=== PATIENT | female | born 1945 | race Caucasian/White ===

== ENCOUNTER → 2018-08-05 | Outpatient (CLI) | payer MEDICARE ==
--- NOTE | 2018-08-05 17:03 | MR ---
EXAMINATION TYPE: MR lumbar spine wo con DATE OF EXAM: 08/05/2018 COMPARISON: NONE HISTORY: Back pain TECHNIQUE: T1 and T2 axial and sagittal images of the lumbar spine are submitted. FINDINGS: There is no abnormal signal seen within the visualized spinal cord or paraspinal soft tissu es. There is a 1.9 cm left adrenal mass.Multilevel severe degenerative disc disease which is progress ed from the prior exam with vacuum disc seen at levels L2-S1. Discogenic marrow changes are now noted at L4-5. At T12-L1 there is no disc herniation or canal stenosis. No foraminal encroachment. At L1-2 there is no disc herniation or canal stenosis. No foraminal encroachment. At L2-3 there is degenerative disc disease with facet arthropathy and ligamentum flavum hypertrophy. There is diffuse disc bulging greater laterally to the right with mild right-sided foraminal encroach ment. There is effacement of thecal sac and borderline to mild central stenosis. Finding is mildly pr ogressed At L3-4 there is degenerative disc disease with diffuse disc bulging, hypertrophy ligamentum flavum a nd facet arthropathy. There is moderate right-sided foraminal encroachment due to greater disc bulgin g laterally the right. Mild effacement of thecal sac. Findings appear stable. Borderline to mild cent ral stenosis At L4-5 there is severe degenerative disc disease which is progressed from the prior exam. There is a broad-based central disc herniation with hypertrophy facets and ligamentum flavum resulting in moder ate to severe central stenosis and bilateral foraminal encroachment which are progressed from prior e xam. At L5-S1 there is severe degenerative disc disease with facet arthropathy and central disc bulging. T here is mild to moderate bilateral foraminal encroachment greater on the right. Mild effacement of th ecal sac and borderline central stenosis. IMPRESSION: 1. There is a 1.9 cm left adrenal mass. This nodule appears increased in size from 2013. Recommend CT of the abdomen. 2. Multilevel severe degenerative disc disease which is progressed from the prior exam with vacuum di sc seen at levels L2-S1. Discogenic marrow changes are now noted at L4-L5. 3. There is progression of disc herniation at L4-L5 resulting in moderate to severe ventral stenosis and bilateral foraminal encroachment. 4. Borderline to mild central stenosis L2-3, L3-4 and L5-S1. 5. Multilevel facet arthropathy with multilevel foraminal encroachment as discussed above.
== END | disposition home or self-care (01) ==
LOC: RADMRIMAIN 13:46
PROVIDERS: ATTEND Neurological Surgery
DX: M48.07 Spinal stenosis, lumbosacral region (principal); M51.17 Intervertebral disc disorders with radiculopathy, lumbosacral region; M46.96 Unspecified inflammatory spondylopathy, lumbar region
CPT/HCPCS: 72148

== ENCOUNTER → 2018-09-19 | Outpatient (CLI) | payer MEDICARE ==
--- NOTE | 2018-09-19 15:15 | US ---
EXAMINATION TYPE: US carotid duplex BILAT DATE OF EXAM: 09/19/2018 COMPARISON: Carotid MRA 07/04/2013 CLINICAL HISTORY: R42 DIZZINESS,R93.8 ABN CAROTID DUPLEX. Patient states having known stenosis. HTN. No hx of TIA. No high cholesterol. EXAM MEASUREMENTS: RIGHT: Peak Systolic Velocity (PSV) cm/sec ----- Right CCA: 60.9 ----- Right ICA: 206.0 ----- Right ECA: 186.5 ICA/CCA ratio: 3.4 RIGHT: End Diastole cm/sec ----- Right CCA: 11.8 ----- Right ICA: 33.2 ----- Right ECA: 0.0 LEFT: Peak Systolic Velocity (PSV) cm/sec ----- Left CCA: 110.8 ----- Left ICA: 135.2 ----- Left ECA: 190.4 ICA/CCA ratio: 1.2 LEFT: End Diastole cm/sec ----- Left CCA: 21.5 ----- Left ICA: 23.7 ----- Left ECA: 0.0 VERTEBRALS (direction of flow): Right Vertebral: Antegrade Left Vertebral: Antegrade Rhythm: Normal Bilateral wall thickening. Plaque seen in bilateral CCA's. Plaque seen in bilateral bulbs extending into proximal ICA. Right significant stenosis. Elevated prox right ICA, Bilateral ECA, left mid CC A, left prox ICA, left mid ICA and left bulb. Grayscale, color Doppler, spectral Doppler imaging performed of the carotid arteries. IMPRESSION: Hemodynamic significant stenosis of the proximal internal carotid artery on the right co rresponding to approximately 50-69% diameter reduction by Doppler criteria, an indirect measurement o f carotid stenosis, carotid CTA or MRA may be of benefit. Criteria for Assigning % of Stenosis / Diameter reduction (Estimation based on the indirect measurements of the internal carotid artery velocities (ICA PSV). 1. Normal (no stenosis)=ICA PSV < 125 cm/s: ratio < 2.0: ICA EDV<40 cm/s. 2. Less than 50% stenosis=ICA PSV < 125 cm/s: ratio < 2.0: ICA EDV<40 cm/s. 3. 50 to 69% stenosis=ICA PSV of 125 to 230 cm/s: ration 2.0 ? 4.0: ICA EDV 40-100 cm/s. 4. Greater than 70% stenosis to near occlusion= ICA PSV > 230 cm/s: ratio > 4.0: ICA EDV > 100 cm/s. 5. Near occlusion= ICA PSV velocities may be low or undetectable: variable ratio and ICA EDV. 6. Total occlusion=unable to detect flow.
--- NOTE | 2018-09-19 17:31 | MR ---
EXAMINATION TYPE: MR brain wo/w con DATE OF EXAM: 09/19/2018 COMPARISON: None HISTORY: Anosmia CONTRAST: Performed utilizing 7.5 mL intravenous Gadavist gadolinium contrast. TECHNIQUE: Multiplanar, multiecho imaging on a 3.0 Simran magnet is performed through the brain. Stud y is performed within 24 hours of arrival to the hospital. The craniovertebral junction is normal. The pituitary is normal. Diffusion-weighted imaging is performed. No abnormal hyperintensity is present to suggest an acute i ntracranial infarct or acute ischemic change. There are confluent periventricular white matter changes likely on the basis of chronic white matter ischemic change. Differential diagnosis could include multiple sclerosis vasculitis. Ventricles and sulci are appropriate for the patient age. Cribriform plate appears unremarkable. There is some mild mucosal thickening within ethmoid air cells . No suspicious enhancement is evident. IMPRESSIONS: 1. No suspicious acute abnormality to account for Anosmia. 2. Confluent periventricular white matter ischemic type changes. 3. Mild mucosal thickening ethmoid air cells
== END ==
LOC: RADUSWWP 12:37
PROVIDERS: ATTEND Otolaryngology
DX: I65.21 Occlusion and stenosis of right carotid artery (principal); R90.89 Other abnormal findings on diagnostic imaging of central nervous system; I67.82 Cerebral ischemia
CPT/HCPCS: 93880; 70553; A9585

== ENCOUNTER 2019-01-16 10:54 | Day surgery (SDC) | payer MEDICARE ==
[~2019-01-16 10:54] MED LIST: ALPRAZolam 0.25 MG TAB PO PRN; ALPRAZolam 0.5 MG TAB PO PRN; ASPIRIN 325 MG TAB PO STA; ATORVASTATIN 80 MG TAB PO STA; NITROGLYCERIN SL TABS 0.4 MG TAB SUBLINGUAL PRN; SODIUM CHLORIDE 0.9% 1,000 ML in EMPTY BAG 1 BAG IV ONE
[2019-01-16 11:42] LABS: Glucose,Whole Blood 113 mg/dL (75-99)
[2019-01-16] MEDS ORDERED: LIDOCAINE 1% INJ 10MG/ML (20 ML MDV) ONE ×2 (12:04→12:22)
[2019-01-16] MEDS ORDERED: VERAPAMIL 2.5 MG/ML 2 ML AMP ONE (12:04)
[2019-01-16] MEDS ORDERED: fentaNYL (PF) 50 MCG/ML 2 ML AMP ONE (12:05)
[2019-01-16] MEDS: MIDAZOLAM 2 MG/2 ML VIAL IV ONE (12:08)
[2019-01-16] MEDS: fentaNYL (PF) 50 MCG/ML 2 ML AMP IV ONE ×2 (12:08→12:17)
[2019-01-16] MEDS ORDERED: LIDOCAINE 1% INJ 10MG/ML (20 ML MDV) SQ ONE ×2 (12:10→12:23)
[2019-01-16] MEDS ORDERED: HEPARIN SODIUM 1,000 UN/ML (10ML VL) ONE (12:15)
[2019-01-16] MEDS ORDERED: VERAPAMIL SYRINGE (5 MG/10 ML) INTRAARTER ONE (12:16)
[2019-01-16] MEDS ORDERED: IOPAMIDOL-370 150ML BTL INJ ONE (13:00)
[2019-01-16] MEDS ORDERED: RX INFO: IV CONTRAST WAS GIVEN 1 EACH MISC MISCELLANE PRN (13:17)
--- NOTE | 2019-01-16 13:34 | P.CARDCATH ---
Date of Procedure: 01/16/19 Preoperative Diagnosis: Coronary artery disease, positive stress test Postoperative Diagnosis: Significant left main disease with total occlusion of the RCA and borderline to critical lesion involving mid LAD Description of Procedure: HISTORY: This is a 73-year-old female with history of known ischemic heart disease, peripheral vascular disease and also carotid disease who was recently evaluated by nuclear stress test. Patient developed significant bradycardia with heart rates of 20s requiring aminaphylline and atropine. Nuclear study was suggestive of ischemia of mild to moderate disease involving the anterior wall and septum. She is known to have total occlusion of the RCA. Patient is advised to have a cardiac catheterization for definitive diagnosis. CONSENT:I have discussed the risks, benefits and alternative therapies for the above-mentioned procedure and for both sedation/analgesia as well as necessary blood product administration, if indicated, as they pertain to this patient. The patient has indicated understanding and acceptance of the risks and procedures discussed. [] PROCEDURE: Patient was brought to the lab in a fasting state. The right wrist is infiltrated with lidocaine. Right radial artery was entered using Seldinger technique. Patient was given heparin 4000 units. Right coronary artery was advanced with the guidewire. However, the guidewire could not be advanced to the above, the elbow level. Dye was injected and it was felt that she has diffuse disease involving the brachial artery. The procedure was abandoned and cardiac catheterization was done from the left groin approach. Patient was given some IV sedation. The left groin is infiltrated with lidocaine and left femoral artery was entered using Seldinger technique. A 6- Turkish catheter was left in place and selective coronary arteriography was performed. Patient tolerated the procedure well. Femoral angiogram was performed and Angio-Seal was applied for hemostasis. No immediate complications were noted and patient was transferred to [facility] in a stable condition Conscious Sedation: Versed 1mg Fentanyl 75 g Duration 40minutes HEMODYNAMICS: Aortic pressure is 130/70. Left ventricular end-diastolic pressure is 12-15. There was no gradient across the aortic valve SELECTIVE CORONARY ARTERIOGRAPHY: LEFT MAIN: the left coronary system and the right, cyst more heavily calcified. There appears to be about 50-60% ostial stenosis of the left main. THE LEFT ANTERIOR DESCENDING CORONARY ARTERY: This is a good caliber vessel giving rise to moderate caliber septal and diagonal branches. There is also about 70% eccentric lesion of the mid LAD. The rest of the LAD is free of any significant focal lesions. THE LEFT CIRCUMFLEX AND IS CORONARY ARTERY: This is a moderate caliber vessel giving rise to 2 OM branches. There is a diffuse plaque involving the left circumflex coronary artery without any critical lesions. THE RIGHT CORONARY ARTERY: This is a moderate caliber vessel with a total occlusion after the acute marginal branch. The acute marginal branch has about 80% stenosis. There are collaterals from the acute marginal to the distal RCA LEFT VENTRICULOGRAPHY: Not performed FINAL IMPRESSION: Significant coronary artery disease with about 50-60% ostial stenosis of the left main. About 70% stenosis of the mid LAD and total occlusion of the RCA PLAN: Aorta coronary bypass surgery with the AN graft to the LAD. Vein graft to the circumflex and the right coronary artery PROGNOSIS: Guarded because of multiple risk factors and peripheral vascular disease and also carotid disease
--- NOTE | 2019-01-16 16:42 | P.GSCN ---
History of Present Illness Consult date: 01/16/19 Reason for Consult: Multivessel coronary artery disease with left main disease, surgical recommendations Requesting physician: Eric Richter History of present illness: This is a 73-year-old female patient who follows with Dr. Spangler on an outpatient basis. She has a previous medical history of known coronary artery disease, peripheral artery disease with total occlusion of the right internal iliac disease, hypertension, insulin dependent diabetes mellitus, hyperlipidemia , known bilateral carotid disease and she follows with a vascular surgeon at [facility], and previous tobacco dependence although her sister claims she is still a closet chain smoker. She presented to [facility] for cardiac clearance to have eye surgery. She had a Lexiscan stress test, she became bradycardic during the stress test requiring administration of atropine and Aminophyllin. The stress test did show reversible ischemia in the anteroseptal and lateral wall. She was recommended to undergo heart catheterization which was completed this morning and which demonstrated left main stenosis 50-60%, complete occlusion of the right coronary artery after the acute marginal artery which has 80% stenosis, and mid LAD stenosis 70%. She denies any chest pain, shortness of breath, nausea, dizziness, lightheadedness, syncope, or any other symptoms. Dr. Álvarez from cardiothoracic surgery was consulted regarding surgical revascularization recommendations. Review of Systems Review of systems was completed and was negative except as noted. - Musculoskeletal Reports low back pain Past Medical History Past Medical History: Coronary Artery Disease (CAD), Cancer, Diabetes Mellitus, Hyperlipidemia, Hypertension, Vascular Disorder Additional Past Medical History / Comment(s): SEE H & P PROVIDED BY DR. RICHTER FOR CARDIAC HX. AKIKO CAROTID STENOSIS, CERVICAL CA, HERNIATED DISC. History of Any Multi-Drug Resistant Organisms: None Reported Past Surgical History: Appendectomy, Heart Catheterization, Hysterectomy Additional Past Surgical History / Comment(s): PLANS TO HAVE LEFT CATARACT REMOVED AND LOWER BACK SURGERY, ONCE MEDICALLY CLEARED.LEFT FOOT SURGERY. PRIOR PAIN PROCEDURES. Past Anesthesia/Blood Transfusion Reactions: Previous Problems w/ Anesthesia Additional Past Anesthesia/Blood Transfusion Reaction / Comm: SUCCINYLCHOLINE- WEAKNESS IN LEGS, UNABLE TO WALK Past Psychological History: No Psychological Hx Reported Smoking Status: Former smoker Past Alcohol Use History: Rare Additional Past Alcohol Use History / Comment(s): QUIT SMOKING 2013. HAD SMOKED FOR 5 YRS, 1 PACK WOULD LAST 4-5 DAYS. The patient's sister states the patient is still a chain smoker Past Drug Use History: None Reported - Past Family History Mother Family Medical History: Coronary Artery Disease (CAD) Sister(s) Family Medical History: Coronary Artery Disease (CAD) Medications and Allergies Home Medications Medication Instructions Recorded Confirmed Type Ascorbic Acid [Vitamin C] 500 mg PO DAILY 04/22/14 01/16/19 History Atorvastatin Calcium [Lipitor] 40 mg PO HS 04/22/14 01/16/19 History Calcium(Dose Unknown) 1 tab DAILY 04/22/14 01/16/19 History Cholecalciferol [Vitamin D3] 1,000 unit PO DAILY 04/22/14 01/16/19 History Fish Oil/Dha/Epa [Fish Oil 1,200 1 each PO DAILY 04/22/14 01/16/19 History mg Fish Oil] Isosorbide Mononitrate [Imdur] 30 mg PO QAM 04/22/14 01/16/19 History Magnesium 250 mg PO DAILY 04/22/14 01/16/19 History Metoprolol Tartrate [Lopressor] 25 mg PO BID 04/22/14 01/16/19 History Multivitamins, Thera [Multivitamin] 1 tab DAILY 04/22/14 01/16/19 History Niacin [Niacin ER] 500 mg PO DAILY 04/22/14 01/16/19 History metFORMIN HCL [metFORMIN HCL ER] 1,000 mg PO BID 04/22/14 01/16/19 History Insulin Glargine [Lantus] 25 unit SQ QAM 05/18/14 01/16/19 History Alpha Lipoic Acid 1 tab PO DAILY 01/13/19 01/16/19 History Chlorthalidone [Hygroton] 12.5 mg PO QAM 01/13/19 01/16/19 History Losartan [Cozaar] 50 mg PO QAM 01/13/19 01/16/19 History Allergies Allergy/AdvReac Type Severity Reaction Status Date / Time succinylcholine Allergy Severe WEAKNESS Verified 01/13/19 16:14 [Succinylcholine] IN LEGS, COULDN'T WALK clonidine [From Catapres] Allergy DRY MOUTH Verified 01/13/19 16:14 lisinopril Allergy Rash/Hives, Verified 01/13/19 16:14 DRY MOUTH, RUNNY NOSE Surgical - Exam Vital Signs Temp Pulse Resp BP Pulse Ox 97.7 F 71 18 143/67 94 L 01/16/19 11:26 01/16/19 11:26 01/16/19 11:26 01/16/19 11:01/16/19 11:26 - General well developed, well nourished, no distress, no pain, obese - Eyes PERRL, normal ocular movement - ENT no hearing loss - Neck no masses, no bruits, trachea midline - Respiratory Lungs sounds clear bilaterally. Respirations even, nonlabored. Currently on room air with oxygen saturation 95%. No chest wall deformities. - Cardiovascular S1, S2 present. Regular rate and rhythm, sinus rhythm on telemetry. Palpable peripheral pulses bilaterally. No edema present. No calf pain or tenderness noted. No varicosities noted. - Abdomen Abdomen: soft, non tender, bowel sounds - Genitourinary Deferred - Rectum Deferred - Integumentary no rash, no growths - Neurologic normal coordination, normal sensation - Musculoskeletal normal posture - Psychiatric oriented to time, oriented to person, oriented to place, speech is normal, memory intact Results - Labs Abnormal Lab Results - Last 24 Hours (Table) 01/16/19 Range/Units 11:32 POC Glucose (mg/dL) 113 H (75-99) mg/dL - Imaging Additional studies: Cardiac catheterization films reviewed Assessment and Plan Assessment: 1. Asymptomatic coronary artery disease with left main disease 2. Hypertension 3. Hyperlipidemia 4. Peripheral artery disease, total occlusion of the right internal iliac 5. Bilateral carotid disease 6. Previous tobacco dependence. 7. Insulin-dependent diabetes Plan: The patient was seen and examined at the bedside in the extended stay unit. Chart/diagnostics were reviewed. The usual perioperative course was discussed in detail with the patient while her sister was at the bedside. Risks and benefits were discussed in detail. All questions were answered. The patient was agreeable at this time to allow preoperative testing to be completed in order to determine severity of risk factors. We would recommend continuing aspirin, statin, beta juan therapy. Continue to reinforce preoperative teaching. Will discuss the case in detail with Dr. Álvarez. More recommendations to follow. Thank you Dr. Conor Herr for this consult. We look for to working with you in the care of your patient. Time with Patient: Greater than 30
--- NOTE | 2019-01-16 17:01 | ECHOF ---
Referral Reason:assess LV, valves MEASUREMENTS -------- HEIGHT: 167.6 cm WEIGHT: 81.7 kg BP: IVSd: 1.6 cm (0.6 - 1.1) LVIDd: 4.1 cm (3.9 - 5.3) LVPWd: 1.3 cm (0.6 - 1.1) IVSs: 2.0 cm LVIDs: 2.0 cm LVPWs: 2.2 cm LAESV Index (A-L): 26.41 ml/m Ao Diam: 2.6 cm (2.0 - 3.7) AV Cusp: 2.0 cm (1.5 - 2.6) LA Diam: 3.5 cm (2.7 - 3.8) MV EXCURSION: 15.965 mm (> 18.000) MV EF SLOPE: 63 mm/s (70 - 150) EPSS: 0.4 cm MV E Tal: 0.99 m/s MV DecT: 274 ms MV A Tal: 1.23 m/s MV E/A Ratio: 0.80 RAP: 5.00 mmHg RVSP: 8.99 mmHg FINDINGS -------- Sinus rhythm with extra systolic beats. This was a technically good study. The left ventricular size is normal. There is moderate concentric left ventricular hypertrophy. O verall left ventricular systolic function is normal with, an EF between 55 - 60 %. The right ventricle is normal in size and function. The left atrial size is normal. The right atrium is normal in size. Can not exclude possible calcifaction vs vegetation/tumor of aov. There is trace mitral regurgitation. Trace tricuspid regurgitation present. The right ventricular systolic pressure, as measured by Dopp ler, is 8.99mmHg. Pulmonic valve appears structurally normal. The aortic root size is normal. IVC Not well visulized. The pericardium is normal. CONCLUSIONS -------- 1. Sinus rhythm with extra systolic beats. 2. This was a technically good study. 3. The left ventricular size is normal. 4. There is moderate concentric left ventricular hypertrophy. 5. Overall left ventricular systolic function is normal with, an EF between 55 - 60 %. 6. The right ventricle is normal in size and function. 7. The left atrial size is normal. 8. The right atrium is normal in size. 9. Can not exclude possible calcifaction vs vegetation/tumor of aov. 10. There is trace mitral regurgitation. 11. Trace tricuspid regurgitation present. 12. The right ventricular systolic pressure, as measured by Doppler, is 8.99mmHg. 13. Pulmonic valve appears structurally normal. 14. The aortic root size is normal. 15. IVC Not well visulized. 16. The pericardium is normal. TIME STUDY TECHNOLOGIST: Cira Aguila RDCS
[2019-01-16 18:11] LABS: Basophils % (A) 0 %; Eosinophils # (A) 0.1 k/uL (0-0.7); Eosinophils % (A) 1 %; HCT 39.7 % (34.0-46.0); HGB 13.1 gm/dL (11.4-16.0); Lymphocytes # (A) 2.3 k/uL (1.0-4.8); Lymphocytes % (A) 28 %; MCH 32.4 pg (25.0-35.0); MCHC 32.9 g/dL (31.0-37.0); MCV 98.4 fL (80.0-100.0); Mean Platelet Volume 7.1; Monocytes # (A) 0.7 k/uL (0-1.0); Monocytes % (A) 8 %; Neutrophils % (A) 61 %; Platelet Count 295 k/uL (150-450); RBC 4.03 m/uL (3.80-5.40); RDW 12.5 % (11.5-15.5); WBC 8.1 k/uL (3.8-10.6)
[2019-01-16 18:17] LABS: INR 0.9 (<1.2); Partial Thromboplastin Time 23.2 sec (22.0-30.0); Prothrombin Time 9.6 sec (9.0-12.0)
[2019-01-16 18:29] LABS: ALT 41 U/L (9-52); AST 25 U/L (14-36); Albumin 4.3 g/dL (3.5-5.0); Alkaline Phosphatase 82 U/L (38-126); Anion Gap 7 mmol/L; Blood Urea Nitrogen 12 mg/dL (7-17); Calcium 9.4 mg/dL (8.4-10.2); Carbon Dioxide 29 mmol/L (22-30); Chloride 100 mmol/L (98-107); Cholesterol 156 mg/dL (<200); Glucose 121 mg/dL (74-99); HDL Cholesterol 40 mg/dL (40-60); LDL Cholesterol,Calculated 55 mg/dL (0-99); Magnesium 1.8 mg/dL (1.6-2.3); Sodium 136 mmol/L (137-145); Total Bilirubin 0.3 mg/dL (0.2-1.3); Total Protein 6.8 g/dL (6.3-8.2); Triglycerides 303 mg/dL (<150)
[2019-01-16 19:46] VITALS: BMI 30.4
[2019-01-16] MEDS: SODIUM CHLORIDE 0.9% 1,000 ML IV SCH (19:46)
[2019-01-16 21:11] LABS: Glucose,Whole Blood 130 mg/dL (75-99)
[2019-01-16] MEDS: INSULIN ASPART (NovoLOG) 100 UNIT/ML VIAL SQ SCH (21:21)
[2019-01-16] MEDS ORDERED: NIACIN TR 500 MG CAPLET PO SCH (21:45)
[2019-01-16] MEDS ORDERED: MULTIVITAMINS, THERA 1 EACH TAB PO SCH (21:45)
[2019-01-16] MEDS ORDERED: CHOLECALCIFEROL 1,000 UNIT TAB PO SCH (21:45)
[2019-01-16] MEDS ORDERED: ATORVASTATIN 40 MG TAB PO SCH (22:00)
[2019-01-16] MEDS: METOPROLOL TARTRATE 25 MG TAB PO SCH (22:13)
[2019-01-16] MEDS: ASCORBIC ACID 500 MG TAB PO SCH (22:13)
[2019-01-16] MEDS: MAGNESIUM OXIDE 400 MG TAB PO SCH (22:13)
[2019-01-16 23:41] LABS: Hepatitis A Antibody IgM Non-Reactive (Non-Reactive); Hepatitis B Core IgM Non-Reactive (Non-Reactive)
[2019-01-17 00:14] LABS: Hemoglobin A1C 7.4 % (4.0-6.0)
[2019-01-17 04:54] VITALS: TEMP 98
[2019-01-17] MEDS: SODIUM CHLORIDE 0.9% 1,000 ML IV SCH (05:31)
[2019-01-17 05:53] LABS: Glucose,Whole Blood 138 mg/dL (75-99)
[2019-01-17] MEDS: INSULIN ASPART (NovoLOG) 100 UNIT/ML VIAL SQ SCH ×2 (05:56→13:57)
[2019-01-17] MEDS ORDERED: ASCORBIC ACID 500 MG TAB PO SCH (09:00)
[2019-01-17] MEDS ORDERED: ISOSORBIDE MONONITRATE ER 30 MG TAB.ER.24H PO SCH (09:00)
[2019-01-17] MEDS ORDERED: CHLORTHALIDONE 25 MG TAB PO SCH (09:00)
[2019-01-17] MEDS ORDERED: LOSARTAN 50 MG TAB PO SCH (09:00)
[2019-01-17] MEDS ORDERED: NON-FORMULARY DRUG (Fish Oil/Dha/Epa [Fish Oil 1,200 Mg Fish Oil] 1 EACH) PO SCH (09:00)
[2019-01-17] MEDS ORDERED: ALPHA LIPOIC ACID PO SCH (09:00)
[2019-01-17] MEDS ORDERED: NIACIN TR 500 MG CAPLET PO SCH (09:00)
[2019-01-17] MEDS ORDERED: MAGNESIUM OXIDE 400 MG TAB PO SCH (09:00)
[2019-01-17] MEDS ORDERED: CHOLECALCIFEROL 1,000 UNIT TAB PO SCH (09:00)
[2019-01-17] MEDS: INSULIN DETEMIR (LEVEMIR) 100 UNIT/ML SYR SQ SCH ×2 (09:25→13:57)
[2019-01-17] MEDS: METOPROLOL TARTRATE 25 MG TAB PO SCH (09:26)
[2019-01-17 11:11] LABS: Glucose,Whole Blood 142 mg/dL (75-99)
[2019-01-17] MEDS ORDERED: fentaNYL (PF) 50 MCG/ML 2 ML AMP ONE (11:19)
[2019-01-17] MEDS ORDERED: IV FLUID CONTINUATION 450 ML IV ONE (11:30)
[2019-01-17] MEDS ORDERED: BENZOCAINE SPRAY 1 CAN MUCOUS MEM ONE (11:35)
[2019-01-17] MEDS ORDERED: MIDAZOLAM 2 MG/2 ML VIAL IV ONE ×2 (11:38→11:39)
[2019-01-17] MEDS ORDERED: fentaNYL (PF) 50 MCG/ML 2 ML AMP IV ONE (11:38)
[2019-01-17] MEDS: MIDAZOLAM 2 MG/2 ML VIAL IV ONE (11:45)
[2019-01-17 11:57] VITALS: BP 143/64; PULSE 54; RESP 14
[2019-01-17] MEDS: ASCORBIC ACID 500 MG TAB PO SCH (13:53)
[2019-01-17] MEDS: MAGNESIUM OXIDE 400 MG TAB PO SCH (13:53)
[2019-01-17] MEDS ORDERED: ATORVASTATIN 40 MG TAB PO SCH (21:00)
--- NOTE | 2019-01-20 15:06 | P.PCN ---
Date of Procedure: 01/20/19 Preoperative Diagnosis: Possible mass or vegetation in the near the aortic valve Procedure(s) Performed: Attempted CHALO Description of Procedure: Patient was brought to the lab in a fasting state. She was given IV sedation with 3 mg of Versed and 75 g of fentanyl. The throat was sprayed with Cetacaine. Attempts were made to pass the probe into the esophagus. Patient was very sensitive and uncooperative. It was difficult to pass the probe. Attempts were made to have anesthesia give for sedation. Anesthesia was not available. The procedure was abandoned. This will be discontinued as an outpatient later on. Plan: Patient with transferred to telemetry unit and be monitored.
--- NOTE | 2019-01-22 09:32 | P.VSCSTY ---
Greater Saphenous Vein Mapping This is bilateral lower extremity greater saphenous vein mapping. Date of service 01/17/2019 Vein quality and ultrasound appearance no intraluminal thrombus or wall changes are seen. There are some sizable branches in mid thigh and mid calf. Vein size groin right 8.2 x 8.2 groin left 7.9 x 8.3 High thigh right 6.4 x 6.3 high thigh left 5.8 x 7.0 Mid thigh right 3.6 x 5.0 mid thigh left 4.2 x 4.6 Above-knee right 4.2 x 4.3 above- knee left 3.5 x 3.9 Below knee right 2.7 x 2.9 below-knee left 3.2 x 4.2 Mid calf right 2.5 x 2.9 mid calf left 3.3 x 3.8 Ankle right 2.7 x 3.5 ankle left 2.2 x 2.7 Impression usable bilateral greater saphenous vein. High thigh on both sides may be a bit large for use as coronary conduit.
== END 2019-01-17 14:40 | disposition home or self-care (01) ==
LOC: CATHCVL 10:54 → 3SCARD 16:26 → CATHCVL 01-17 14:40 → 3SCARD 01-17 14:50
PROVIDERS: ATTEND Internal Medicine Cardiovascular Disease
DX: I08.1 Rheumatic disorders of both mitral and tricuspid valves (principal); I25.10 Atherosclerotic heart disease of native coronary artery without angina pectoris; I25.84 Coronary atherosclerosis due to calcified coronary lesion; I10 Essential (primary) hypertension; I70.0 Atherosclerosis of aorta; I73.9 Peripheral vascular disease, unspecified; I65.29 Occlusion and stenosis of unspecified carotid artery; E78.00 Pure hypercholesterolemia, unspecified; E11.9 Type 2 diabetes mellitus without complications; I77.9 Disorder of arteries and arterioles, unspecified; Z88.8 Allergy status to other drugs, medicaments and biological substances; E78.5 Hyperlipidemia, unspecified; Z72.0 Tobacco use; Z79.82 Long term (current) use of aspirin; Z79.4 Long term (current) use of insulin; Z79.899 Other long term (current) drug therapy
CPT/HCPCS: 93306; 93458; 80061; 80053; 80074; 84443; 83735; 85025; 85610; 85730; 83036; 93970; C1760; C1894 ×2; C1769 ×3; J2250 ×2; J2001; J3010 ×2; J1644; Q9967

== ENCOUNTER 2019-01-20 17:02 | Emergency (ER) | payer MEDICARE ==
[2019-01-20 17:07] VITALS: TEMP 98.2
--- NOTE | 2019-01-20 19:09 | ED ---
General Adult HPI - General Chief complaint: Dizziness Stated complaint: dizziness, recent heart cath Time Seen by Provider: 01/20/19 17:54 Source: patient Mode of arrival: ambulatory Limitations: no limitations - History of Present Illness Initial comments: Dictation was produced using [employer] dictation software. please excuse any grammatical, word or spelling errors. Chief Complaint: 73-year-old female past medical history coronary artery disease presents with episodic dizziness for the last 2-3 days. History of Present Illness: Chin is 73-year-old female with past medical history of coronary artery disease presents with dizziness for the last 2-3 days. Patient states his dizziness would last for several minutes and would occur spontaneously. She states that they would resolve spontaneously as well. Patient has had dizziness in the past. Patient is currently undergoing workup for coronary artery bypass grafting. She is anxious about this upcoming surgery. Patient has good outpatient follow-up. She is currently shop around for surgeons in hospital stay where she is going at this procedure performed. The ROS documented in this emergency department record has been reviewed and confirmed by me. Those systems with pertinent positive or negative responses have been documented in the HPI. All other systems are other negative and/or noncontributory. PHYSICAL EXAM: General Impression: Alert and oriented x3, not in acute distress HEENT: Normocephalic atraumatic, extra-ocular movements intact, pupils equal and reactive to light bilaterally, mucous membranes moist. Cardiovascular: Heart regular rate and rhythm, S1&S2 audible, no murmurs, rubs or gallops Chest: Lungs clear to auscultation bilaterally, no rhonchi, no wheeze, no rales Abdomen: Bowel sounds present, abdomen soft, non-tender, non-distended, no organomegaly Musculoskeletal: Pulses present and equal in all extremities, no peripheral edema Motor: Power 5/5 bilaterally, no focal deficits noted Neurological: CN II-XII grossly intact, no focal motor or sensory deficits noted , no gait ataxia Skin: Intact with no visualized rashes Psych: Normal affect and mood ED course: 73-year-old female presents with a chief complaint of episodic dizziness. Patient and motor without complication. No gait ataxia. Patient denies any symptoms at this time. Patient counseled on cessation of smoking. Labs were reviewed from recent lab evaluation. Patient appears well at bedside. No click suspicion for central vertigo. Patient provided with reassurance. She did have a lot of questions about upcoming coronary artery bypass grafting surgery. Discussed with patient the risk and benefits to the extent of my expertise regarding coronary artery bypass grafting surgery. Patient isn't dizzy at this time per she is given prescription for Antivert. She is told to follow-up with PCP upon discharge. - Related Data Home Medications Medication Instructions Recorded Confirmed Ascorbic Acid [Vitamin C] 500 mg PO BID 04/22/14 01/20/19 Atorvastatin Calcium [Lipitor] 40 mg PO HS 04/22/14 01/20/19 Calcium(Dose Unknown) 1 tab BID 04/22/14 01/20/19 Cholecalciferol [Vitamin D3] 1,000 unit PO HS 04/22/14 01/20/19 Fish Oil/Dha/Epa [Fish Oil 1,200 1 cap PO BID 04/22/14 01/20/19 mg Fish Oil] Isosorbide Mononitrate [Imdur] 30 mg PO QAM 04/22/14 01/20/19 Magnesium 200 mg PO BID 04/22/14 01/20/19 Metoprolol Tartrate [Lopressor] 25 mg PO BID 04/22/14 01/20/19 Multivitamins, Thera [Multivitamin 1 tab PO HS 04/22/14 01/20/19 (formulary)] Niacin [Niacin ER] 500 mg PO HS 04/22/14 01/20/19 Insulin Glargine [Lantus] 25 unit SQ QAM 05/18/14 01/20/19 Alpha Lipoic Acid 50 mg PO DAILY 01/13/19 01/20/19 Chlorthalidone [Hygroton] 12.5 mg PO QAM 01/13/19 01/20/19 Losartan [Cozaar] 50 mg PO QAM 01/13/19 01/20/19 metFORMIN HCL 1,000 mg PO BID 01/20/19 01/20/19 Previous Rx's Medication Instructions Recorded Meclizine [Antivert] 12.5 mg PO Q6H PRN #12 tablet 01/20/19 Allergies Allergy/AdvReac Type Severity Reaction Status Date / Time succinylcholine Allergy Severe WEAKNESS Verified 01/20/19 17:22 [Succinylcholine] IN LEGS, COULDN'T WALK clonidine [From Catapres] Allergy DRY MOUTH Verified 01/20/19 17:22 lisinopril Allergy Rash/Hives, Verified 01/20/19 17:22 DRY MOUTH, RUNNY NOSE Review of Systems ROS Statement: Those systems with pertinent positive or pertinent negative responses have been documented in the HPI. ROS Other: All systems not noted in ROS Statement are negative. Past Medical History Past Medical History: Coronary Artery Disease (CAD), Cancer, Diabetes Mellitus, Hyperlipidemia, Hypertension, Vascular Disorder Additional Past Medical History / Comment(s): SEE H & P PROVIDED BY DR. RICHTER FOR CARDIAC HX. AKIKO CAROTID STENOSIS, CERVICAL CA, HERNIATED DISC. History of Any Multi-Drug Resistant Organisms: None Reported Past Surgical History: Appendectomy, Heart Catheterization, Hysterectomy Additional Past Surgical History / Comment(s): PLANS TO HAVE LEFT CATARACT REMOVED AND LOWER BACK SURGERY, ONCE MEDICALLY CLEARED.LEFT FOOT SURGERY. PRIOR PAIN PROCEDURES. Past Anesthesia/Blood Transfusion Reactions: Previous Problems w/ Anesthesia Additional Past Anesthesia/Blood Transfusion Reaction / Comment(s): SUCCINYLCHOLINE- WEAKNESS IN LEGS, UNABLE TO WALK Past Psychological History: No Psychological Hx Reported Smoking Status: Former smoker Past Alcohol Use History: None Reported Past Drug Use History: None Reported - Past Family History Mother Family Medical History: Coronary Artery Disease (CAD) Sister(s) Family Medical History: Coronary Artery Disease (CAD) General Exam Limitations: no limitations Course Vital Signs 01/20/19 17:05 Temperature 98.2 F Pulse Rate 86 Respiratory 18 Rate Blood Pressure 191/71 O2 Sat by Pulse 98 Oximetry Disposition Clinical Impression: Dizziness Disposition: HOME SELF-CARE Condition: Good Instructions (If sedation given, give patient instructions): Dizziness (ED) Prescriptions: Meclizine [Antivert] 12.5 mg PO Q6H PRN #12 tablet PRN Reason: dizziness Is patient prescribed a controlled substance at d/c from ED?: No Referrals: Rakan Spangler MD [Primary Care Provider] - 1-2 days Time of Disposition: 19:05
[2019-01-20] MEDS ORDERED: MECLIZINE 12.5 MG TAB PO STA (19:14)
[2019-01-20 19:30] VITALS: BP 172/73; PULSE 88; RESP 16
--- NOTE | 2019-01-22 06:23 | CDI ---
Documentation Clarification OP Dear Dr. Flynn Spencer Please provide smoking cessation total time spent on counselling . Thank you, Joanne Spencer Utility Repairer If you have any questions, please contact Rubber Compounder Supervisor at [phone] [facility]
== END 2019-01-20 19:31 | disposition home or self-care (01) ==
LOC: EC 17:02
DX: R42 Dizziness and giddiness (principal); I25.10 Atherosclerotic heart disease of native coronary artery without angina pectoris; E11.9 Type 2 diabetes mellitus without complications; E78.5 Hyperlipidemia, unspecified; I10 Essential (primary) hypertension; Z85.41 Personal history of malignant neoplasm of cervix uteri; Z95.818 Presence of other cardiac implants and grafts; Z87.891 Personal history of nicotine dependence; Z79.4 Long term (current) use of insulin; Z79.899 Other long term (current) drug therapy; Z88.8 Allergy status to other drugs, medicaments and biological substances
CPT/HCPCS: 99284

== ENCOUNTER 2019-01-30 10:23 | Day surgery (SDC) | payer MEDICARE ==
[2019-01-27 11:51] VITALS: BMI 29.0
[2019-01-30] MEDS ORDERED: SODIUM CHLORIDE 0.9% 500 ML 500 ML IV ONE (10:53)
[2019-01-30 11:11] LABS: Glucose,Whole Blood 89 mg/dL (75-99)
[2019-01-30 11:15] VITALS: RESP 16; TEMP 98.1
--- NOTE | 2019-01-30 11:37 | XR ---
EXAMINATION TYPE: XR chest 2V DATE OF EXAM: 01/30/2019 COMPARISON: NONE HISTORY: Preop CABG. TECHNIQUE: Frontal and lateral views of the chest are obtained. FINDINGS: Overlying EKG leads are seen. There is no focal air space opacity, pleural effusion, or pne umothorax seen. The cardiac silhouette size is mildly enlarged with atherosclerotic change in the ao rtic knob. The osseous structures are intact. IMPRESSION: Mild cardiomegaly without acute pulmonary process.
[2019-01-30] MEDS ORDERED: PROPOFOL 10 MG/ML 20 ML VIAL IV ONE (11:55)
[2019-01-30] MEDS ORDERED: LIDOCAINE 1% INJ 10MG/ML (20 ML MDV) ONE (11:55)
[2019-01-30] MEDS ORDERED: BENZOCAINE SPRAY 1 CAN TOPICAL ONE (12:09)
[2019-01-30] MEDS ORDERED: SODIUM CHLORIDE 0.9% 1,000 ML IV SCH (12:30)
[2019-01-30 13:48] VITALS: BP 132/59; PULSE 59
--- NOTE | 2019-02-07 13:35 | P.PCN ---
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 Postoperative Diagnosis: No evidence of mass or vegetation on the aortic valve. Aortic leaflets are heavily calcified Procedure(s) Performed: [facility] Description of Procedure: This is a 73-year-old female who was recently evaluated by cardiac catheterization and was found to have coronary artery disease requiring bypass surgery. Transthoracic echo done at the time was reported as showing possible tumor or vegetation on the aortic valve. A transesophageal echocardiogram is requested for further calcification of the lesion on the aortic valve. INDICATION: To assess aortic valve CONSENT:. Informed consent was obtained from the patient PROCEDURE: Patient was brought to the lab in a fasting state. Department of anesthesia provided IV anesthesia with propofol. The throat was sprayed with Cetacaine. A lubricated Omni probe was introduced into the oropharynx and was advanced into the esophagus. Multiple views were obtained. Patient tolerated the procedure well FINDINGS:. The aortic valve is tricuspid with a significant callus patient of the leaflets. The left coronary cusp appeared to be heavily calcified but does n't appear to have any evidence of mass or vegetation. The left atrial appendage is free of any clot. The interatrial septum is intact without any evidence of shunt. Contrast several bubble injection did not reveal any crossing of the bubbles. The mitral valve function appear to be normal. The left ankle function is preserved. The aorta showed mild plaque IMPRESSION: #1. No evidence of any mass or vegetation on the aortic valve. #2. Aortic valve leaflets are heavily calcified but no evidence of stenosis #3. No PFO #4. No clot in the left atrial appendage. #5. Mild plaque in the aorta PLAN: Proceed with bypass surgery
== END 2019-01-30 13:49 | disposition home or self-care (01) ==
LOC: CATHCVL 10:23
PROVIDERS: ATTEND Internal Medicine Cardiovascular Disease
DX: I25.10 Atherosclerotic heart disease of native coronary artery without angina pectoris (principal); E78.5 Hyperlipidemia, unspecified; I10 Essential (primary) hypertension; E78.00 Pure hypercholesterolemia, unspecified; E11.51 Type 2 diabetes mellitus with diabetic peripheral angiopathy without gangrene; Z72.0 Tobacco use; Z79.899 Other long term (current) drug therapy; Z79.4 Long term (current) use of insulin; Z79.82 Long term (current) use of aspirin; Z88.8 Allergy status to other drugs, medicaments and biological substances; I77.9 Disorder of arteries and arterioles, unspecified; I70.0 Atherosclerosis of aorta; Z95.1 Presence of aortocoronary bypass graft
CPT/HCPCS: 93312; 93320; 93325; 87070; 71046; J2001; J2704